=== PATIENT | female | born 1970 | race American Indian/Alaskan Native ===

== ENCOUNTER 2019-07-18 10:31 | Emergency (ER) | payer SELFPAY ==
[2019-07-18] MEDS ORDERED: KETOROLAC 60 MG/2 ML INJ IM ONE (11:14)
[2019-07-18] MEDS ORDERED: HYDROcodone/ACETAMINOPHEN 5-325 MG TAB PO ONE (11:14)
--- NOTE | 2019-07-18 11:50 | Emergency Department Report ---
ED Abdominal Pain HPI - General Chief Complaint: Rectal Pain Stated Complaint: RECTAL BLEEDING PAINFUL Time Seen by Provider: 07/18/19 11:00 Source: patient Mode of arrival: Ambulatory Limitations: No Limitations - History of Present Illness Initial Comments: 48-year-old female with past medical history of tubal ligation and asthma presents to the Hospital complains of suprapubic pain radiating to vagina and rectal pain. Patient has irregular menses and started having vaginal bleeding today. She complains of moderate to severe suprapubic pressure associated with urination. She also help pressure in her rectal area and did not have a bowel movement and reports blood from her rectum as well. She denies dysuria, fever, nausea, vomiting, diarrhea. She is and denies concern for STDs. Severity scale (0 -10): 10 - Related Data Previous Rx's Medication Instructions Recorded Last Taken Type Azithromycin [Zithromax Z-EDGAR] 250 mg PO DAILY #6 tablet 08/26/14 Unknown Rx Omeprazole [PriLOSEC] 20 mg PO QDAY #30 capsule. 08/26/14 Unknown Rx busPIRone [Buspar] 10 mg PO BID #60 tab 08/26/14 Unknown Rx HYDROcodone/APAP 5-325 [[place] 1 each PO Q6HR PRN #14 tablet 07/18/19 Unknown Rx 5/325] Ibuprofen [Motrin] 800 mg PO Q8HR PRN #30 tablet 07/18/19 Unknown Rx Allergies Allergy/AdvReac Type Severity Reaction Status Date / Time No Known Allergies Allergy Verified 09/21/13 10:12 ED Review of Systems ROS: Stated complaint: RECTAL BLEEDING PAINFUL Other details as noted in HPI Comment: All other systems reviewed and negative ED Past Medical Hx - Past Medical History Hx Hypertension: No Hx Heart Attack/AMI: No Hx Congestive Heart Failure: No Hx Diabetes: No Hx Deep Vein Thrombosis: No Hx Pulmonary Embolism: No Hx Liver Disease: No Hx Renal Disease: No Hx Sickle Cell Disease: No Hx Arthritis: Yes Hx Seizures: No Hx Kidney Stones: No Hx Asthma: Yes Hx COPD: No Hx Tuberculosis: No Hx Dementia: No Hx HIV: No - Surgical History Hx Coronary Stent: No Hx Open Heart Surgery: No Hx Pacemaker: No Hx Internal Defibrillator: No Hx Cholecystectomy: No Hx Appendectomy: No Hx Breast Surgery: No - Social History Smoking Status: Current Every Day Smoker Substance Use Type: Alcohol - Medications Home Medications: Home Medications Medication Instructions Recorded Confirmed Last Taken Type Azithromycin [Zithromax Z-EDGAR] 250 mg PO DAILY #6 tablet 08/26/14 Unknown Rx Omeprazole [PriLOSEC] 20 mg PO QDAY #30 capsule. 08/26/14 Unknown Rx busPIRone [Buspar] 10 mg PO BID #60 tab 08/26/14 Unknown Rx HYDROcodone/APAP 5-325 [[place] 1 each PO Q6HR PRN #14 tablet 07/18/19 Unknown Rx 5/325] Ibuprofen [Motrin] 800 mg PO Q8HR PRN #30 tablet 07/18/19 Unknown Rx ED Physical Exam - General Limitations: No Limitations - Other Other exam information: Gen.: No acute distress Head: Atraumatic Eyes: Normal appearance ENT: Moist mucous membranes Neck: Normal appearance, no posterior midline tenderness, no meningismus Chest: Clear to auscultation bilaterally Cardiovascular: Regular rate and rhythm Abdomen: Normal appearance, soft, suprapubic tenderness, no rebound or guarding, normal bowel sounds Rectal: No external lesions or hemorrhoids. Guaiac negative brown stool. No signs of bleeding Back: Normal appearance, nontender Extremity: Full range of motion, normal appearance Neuro: Alert and oriented 3, clear speech, no focal motor or sensory deficit Psychiatric: Appropriate Skin: No rash ED Course Vital Signs 07/18/19 07/18/19 10:37 11:30 Temperature 98.7 F Pulse Rate 100 H Respiratory 20 18 Rate Blood Pressure 169/81 O2 Sat by Pulse 98 Oximetry ED Medical Decision Making - Lab Data Lab Results 07/18/19 Range/Units 11:45 Urine Color Yellow (Yellow) Urine Turbidity Slightly-cloudy (Clear) Urine pH 5.0 (5.0-7.0) Ur Specific [place] 1.021 (1.003-1.030) Urine Protein 30 mg/dl (Negative) mg/dL Urine Glucose (UA) Neg (Negative) mg/dL Urine Ketones Neg (Negative) mg/dL Urine Blood Lg (Negative) Urine Nitrite Neg (Negative) Urine Bilirubin Neg (Negative) Urine Urobilinogen < 2.0 (<2.0) mg/dL Ur Leukocyte Esterase Neg (Negative) Urine WBC (Auto) 4.0 (0.0-6.0) /HPF Urine RBC (Auto) 51.0 (0.0-6.0) /HPF U Epithel Cells (Auto) 7.0 (0-13.0) /HPF Urine Mucus Few /HPF Urine HCG, Qual Negative (Negative) - Radiology Data Radiology results: report reviewed ULTRASOUND PELVIS INDICATION: Pelvic pain. Vaginal bleeding. TECHNIQUE: Transabdominal. Duplex Color Doppler used: Yes. COMPARISON: None available FINDINGS: Uterus: Measures 11.8 x 8.8 x 8.9 cm and contains a probable fibroid involving most of the fundus/body and measuring 8.4 x 7.6 x 6.7 cm. The endometrial stripe measures 13 mm and appears unremarkable. Right Ovary: Measures 2.8 x 1.1 x 2.2 cm and appears unremarkable. Left Ovary: Measures 2.0 x 1.3 x 1.5 cm and appears unremarkable. Urinary Bladder: Normal. Free Fluid: None. Additional Findings: None. IMPRESSION: Probable large uterine fibroid as above. - Medical Decision Making Patient presents to the hospital with pelvic pain related to her vagina and rectum with onset of menstrual cycle. Clinically no signs of rectal bleeding and I suspect that blood actually came from vagina. Ultrasound confirms a large uterine fibroid. Symptoms improved with pain medication in the ED. Patient will be discharged with DIRECTOR OF BUSINESS DEVELOPMENT follow-up and meds. bp elevated, pt states she is taking sudafed (which elevates her BP). Pt informed to f/u for check, she is symptomatic - Differential Diagnosis fibroid, bleeding, dysmenorrhea, PID Critical Care Time: No Critical care attestation.: If time is entered above; I have spent that time in minutes in the direct care of this critically ill patient, excluding procedure time. ED Disposition Clinical Impression: Uterine fibroid, Dysmenorrhea, Elevated blood pressure reading Disposition: DC- TO HOME OR SELFCARE Is pt being admited?: No Does the pt Need Aspirin: No Condition: Stable Instructions: Dysmenorrhea (ED), Uterine Fibroids (ED), How to Take a Blood Pressure (ED) Additional Instructions: Take the medication as prescribed. Follow-up with your doctor or with the doctor/clinic provided. Return if symptoms worsen as indicated by your discharge instructions. Take the copy of your Ultrasound report provided to your asset protection officer doctor for follow up. Prescriptions: Ibuprofen [Motrin] 800 mg PO Q8HR PRN #30 tablet PRN Reason: Pain, Moderate (4-6) HYDROcodone/APAP 5-325 [[place] 5/325] 1 each PO Q6HR PRN #14 tablet PRN Reason: Pain Referrals: PRIMARY CARE, [Primary Care Provider] - 3-5 Days MILAN REZA MD [Staff Physician] - 3-5 Days (electrical supervisor ) [facility] [Provider Group] - 3-5 Days ADAMA CALLES MD [Staff Physician] - 3-5 Days (primary care doctor ) Time of Disposition: 15:18
[2019-07-18 11:57] LABS: Bilirubin,Urine NEG (Negative); Blood,Urine LG (Negative); Color,Urine Yellow (Yellow); Mucus,Urine FEW /HPF; Urobilinogen,Urine < 2.0 mg/dL (<2.0)
[2019-07-18 12:08] LABS: HCG Qualitative,Urine Negative (Negative)
--- NOTE | 2019-07-18 14:40 | Ultrasound Report ---
ULTRASOUND PELVIS INDICATION: Pelvic pain. Vaginal bleeding. TECHNIQUE: Transabdominal. Duplex Color Doppler used: Yes. COMPARISON: None available FINDINGS: Uterus: Measures 11.8 x 8.8 x 8.9 cm and contains a probable fibroid involving most of the fundus/bod y and measuring 8.4 x 7.6 x 6.7 cm. The endometrial stripe measures 13 mm and appears unremarkable. Right Ovary: Measures 2.8 x 1.1 x 2.2 cm and appears unremarkable. Left Ovary: Measures 2.0 x 1.3 x 1.5 cm and appears unremarkable. Urinary Bladder: Normal. Free Fluid: None. Additional Findings: None. IMPRESSION: Probable large uterine fibroid as above. Signer Name: Dimitrios Velez MD Signed: 07/18/2019 2:35 PM Workstation Name: [id number]
[2019-07-18 15:17] VITALS: BP 160/89
== END 2019-07-18 15:51 | disposition home or self-care (01) ==
LOC: ED 10:31
DX: D25.9 Leiomyoma of uterus, unspecified (principal); N94.6 Dysmenorrhea, unspecified; M19.90 Unspecified osteoarthritis, unspecified site; F17.200 Nicotine dependence, unspecified, uncomplicated; Z79.899 Other long term (current) drug therapy
CPT/HCPCS: 76857; 81001; 81025; 82271; 96372; 99284; J1885; 76856

== ENCOUNTER 2020-06-22 10:08 | Outpatient (CLI) | payer OTHER ==
--- NOTE | 2020-06-22 12:15 | Mammography Report ---
DIGITAL SCREENING MAMMOGRAM WITH CAD, 06/22/2020 INDICATION: Routine screening mammography. SCREENING MAMMO TECHNIQUE: Digital bilateral 2D mammography was obtained in the craniocaudal and mediolateral obliq ue projections. This examination was interpreted with the benefit of Computer-Aided Detection analysi s. COMPARISON: None, baseline FINDINGS: Breast Density: The breasts are heterogeneously dense, which may obscure small masses. There is no evidence of dominant mass, suspicious calcifications or architectural distortion in eithe r breast. IMPRESSION: No evidence of malignancy Follow up recommendation: Routine yearly BI-RADS Category 1: Negative. A "normal" or negative report should not discourage follow up or biopsy of a clinically significant f inding. A written summary of these findings will be mailed to the patient. The patient will be entered into a mammography reporting system which will generate a reminder letter for the patient's next appointmen t at the appropriate interval. The [employer] recommends yearly mammograms starting at age 40 and continuing as l zeeshan as a woman is in good health. Breast MRI is recommended for women with an approximate 20-25% or greater lifetime risk of breast cancer, including women with a strong family history of breast or ova joon cancer or who have been treated for Hodgkin's disease. Signer Name: Chandler Andrade MD Signed: 06/22/2020 12:11 PM Workstation Name: [id number]
== END 2020-06-22 10:09 | disposition home or self-care (01) ==
LOC: MAMMO 10:08
PROVIDERS: ATTEND Obstetrics & Gynecology
DX: Z12.31 Encounter for screening mammogram for malignant neoplasm of breast (principal); E04.9 Nontoxic goiter, unspecified; N95.1 Menopausal and female climacteric states
CPT/HCPCS: 77067

== ENCOUNTER 2021-02-02 08:53 | Emergency (ER) | payer OTHER ==
[2021-02-02 09:05] VITALS: BP 198/112
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
== END 2021-02-02 09:15 | disposition home or self-care (01) ==
LOC: ED 08:53
DX: R03.0 Elevated blood-pressure reading, without diagnosis of hypertension (principal); M19.90 Unspecified osteoarthritis, unspecified site; J45.909 Unspecified asthma, uncomplicated; Z79.899 Other long term (current) drug therapy; V49.49XA Driver injured in collision with other motor vehicles in traffic accident, initial encounter; Y93.89 Activity, other specified; Y92.488 Other paved roadways as the place of occurrence of the external cause; Y99.8 Other external cause status
CPT/HCPCS: 99281